=== PATIENT | female | born 1985 | race Caucasian/White ===

== ENCOUNTER 2020-05-02 11:55 | Outpatient (REF) | payer OTHER, SELFPAY ==
[2020-05-02 14:53] LABS: CT PCR NOT DETECTED (Not Detect.); NG PCR NOT DETECTED (Not Detect.)
[2020-05-03 13:39] LABS: BV Int Neg Control Negative (Negative); BV Int Pos Control Positive (Positive)
== END 2020-05-02 11:56 | disposition home or self-care (01) ==
LOC: HO.LNP 11:55
PROVIDERS: Visit Provider Hospitalist
DX: B37.9 Candidiasis, unspecified (principal)
CPT/HCPCS: 87480; 87491; 87510; 87591; 87660